=== PATIENT | female | born 1935 | race Asian ===

== ENCOUNTER 2021-04-30 09:16 | Emergency (ER) | payer BC, OTHER ==
[2021-04-30 09:42] VITALS: BMI 26.2
[2021-04-30] MEDS ORDERED: MECLIZINE HCL 25 MG TABLET (FP) PO ONE (10:49)
[2021-04-30] MEDS ORDERED: MECLIZINE HCL 25 MG TABLET (FP) ONE (10:52)
[2021-04-30] MEDS ORDERED: DIPHTH,PERTUSS(ACELL),TET 0.5 ML DISP.SYRIN IM ONE ×2 (11:07→11:26)
[2021-04-30 13:40] VITALS: BP 133/74; PULSE 69; TEMP 98.3
== END 2021-04-30 14:38 | disposition home or self-care (01) ==
LOC: JER 09:16
PROC: 3E0234Z Introduction of Serum, Toxoid and Vaccine into Muscle, Percutaneous Approach (ICD-10-PCS; principal; 2021-04-30)
DX: R42 Dizziness and giddiness (principal); W19.XXXA Unspecified fall, initial encounter
CPT/HCPCS: 70450-TC; 72125-TC; 90471; 90715; 93005; 93010; 99284-25

== ENCOUNTER 2024-10-31 14:09 | Observation (INO) | payer BC, OTHER ==
[2024-10-31] MEDS ORDERED: ONDANSETRON 4 MG/2 ML VIAL ONE (15:15)
[2024-10-31] MEDS ORDERED: ACETAMINOPHEN INJECTION 100 ML ONE (15:15)
[2024-10-31 15:36] LABS: ABSOLUTE IMMATURE GRANULOCYTES 0.16 x10^3/uL (0.0-0.031); BASOPHILS # 0.03 x10^3/uL (0.01-0.08); EOSINOPHIL % 0.3 % (0.7-5.8); EOSINOPHILS # 0.05 x10^3/uL (0.04-0.36); MCHC 33.2 g/dl (32.2-35.5); MEAN CELL VOLUME 94.0 fl (79.4-94.8); MEAN PLT VOLUME 11.0 fl (9.4-12.3); MONOCYTE # 1.22 x10^3/uL (0.24-0.86); MONOCYTE % 7.9 % (4.7-12.5); RDW 15.8 % (12.5-17.0)
[2024-10-31] MEDS: ONDANSETRON 4 MG/2 ML VIAL IVPUSH ONE (15:36)
[2024-10-31] MEDS: ACETAMINOPHEN 1000 MG/100 ML BAG IVPB ONE (15:37)
[2024-10-31] MEDS: SODIUM CHLORIDE 0.9% 500 ML INFUS.BAG IV ONE (15:37)
[2024-10-31 16:38] LABS: GLUCOSE,RANDOM 103.0 mg/dL (74-106); TOT PROT 6.2 g/dl (6.4-8.2)
[2024-10-31 16:39] LABS: CO2 20.0 mmol/L (21-32)
[2024-10-31 16:41] LABS: ALK PHOS 231.0 U/L (40-150)
[2024-10-31 16:44] LABS: SGOT/AST 37.0 U/L (5-34); SGPT/ALT 22.0 U/L (0-55)
[2024-10-31 17:03] LABS: CREATININE 3.18 mg/dL (0.55-1.3)
[2024-10-31 18:09] LABS: EPI CELLS 5 /uL (0-25.1); HYALINE CASTS 0 /uL (0-3.1); URINE APPEARANCE CLEAR; URINE BACTERIA >9,000 /uL (0-1359); URINE BILIRUBIN NEGATIVE (NEGATIVE); URINE COLOR YELLOW; URINE GLUCOSE (UA) NEGATIVE (NEGATIVE); URINE KETONE NEGATIVE (NEGATIVE); URINE LEUK ESTERASE 1+ (NEGATIVE); URINE NITRITE NEGATIVE (NEGATIVE); URINE PROTEIN 1+ (NEGATIVE); URINE RBC 83 /uL (0-23.9); URINE UROBILINOGEN 0.2 mg/dL (0.2-1.0); URINE WBC 108 /uL (0-25.8)
[2024-10-31] MEDS ORDERED: CEFTRIAXONE 1 GM/50 ML BAG ONE (19:33)
[2024-10-31] MEDS: CEFTRIAXONE 1,000 MG in DEXTROSE 5%-WATER - 50 ML IVPB ONE (19:47)
[2024-10-31] MEDS: SODIUM CHLORIDE 1,000 ML IV SCH (19:48)
[2024-10-31 22:34] VITALS: BMI 26.9
[2024-10-31] MEDS: GABAPENTIN 100 MG CAPSULE PO SCH (22:39)
[2024-10-31] MEDS: ATORVASTATIN CA 20 MG TABLET (FP) PO SCH (22:39)
[2024-10-31] MEDS: HEPARIN NA (PORCINE) 5,000 UNITS/ML 1ML VIAL SQ SCH (22:39)
[2024-11-01 03:32] LABS: EPI CELLS 3 /uL (0-25.1); HYALINE CASTS 1 /uL (0-3.1); URINE APPEARANCE CLEAR; URINE BACTERIA 2185 /uL (0-1359); URINE BILIRUBIN NEGATIVE (NEGATIVE); URINE COLOR YELLOW; URINE GLUCOSE (UA) NEGATIVE (NEGATIVE); URINE KETONE NEGATIVE (NEGATIVE); URINE LEUK ESTERASE 1+ (NEGATIVE); URINE NITRITE POSITIVE (NEGATIVE); URINE PROTEIN 1+ (NEGATIVE); URINE RBC 388 /uL (0-23.9); URINE UROBILINOGEN 0.2 mg/dL (0.2-1.0)
[2024-11-01 07:36] LABS: MCHC 33.0 g/dl (32.2-35.5); MEAN CELL VOLUME 95.2 fl (79.4-94.8); MEAN PLT VOLUME 10.9 fl (9.4-12.3); RDW 16.0 % (12.5-17.0)
[2024-11-01 07:55] LABS: GLUCOSE,RANDOM 83.0 mg/dL (74-106); TOT PROT 6.0 g/dl (6.4-8.2)
[2024-11-01 07:56] LABS: CO2 17.0 mmol/L (21-32)
[2024-11-01 07:58] LABS: ALK PHOS 222.0 U/L (40-150)
[2024-11-01 08:01] LABS: CREATININE 2.31 mg/dL (0.55-1.3); SGOT/AST 25.0 U/L (5-34); SGPT/ALT 19.0 U/L (0-55)
[2024-11-01] MEDS: amLODIPine BESYLATE 5 MG TABLET (FP) PO SCH (09:18)
[2024-11-01] MEDS: LOSARTAN POTASSIUM 50 MG TABLET PO SCH (09:18)
[2024-11-01] MEDS: SERTRALINE HCL 25 MG TABLET (FP) PO SCH (09:18)
[2024-11-01] MEDS: SODIUM CHLORIDE 0.45% 1,000 ML IV SCH (13:34)
[2024-11-02 09:10] VITALS: RESP 18
[2024-11-02 09:51] LABS: ABSOLUTE IMMATURE GRANULOCYTES 0.09 x10^3/uL (0.0-0.031); BASOPHILS # 0.03 x10^3/uL (0.01-0.08); EOSINOPHIL % 1.0 % (0.7-5.8); EOSINOPHILS # 0.10 x10^3/uL (0.04-0.36); MCHC 31.4 g/dl (32.2-35.5); MEAN CELL VOLUME 98.4 fl (79.4-94.8); MEAN PLT VOLUME 10.4 fl (9.4-12.3); MONOCYTE # 0.68 x10^3/uL (0.24-0.86); MONOCYTE % 6.6 % (4.7-12.5); RDW 16.0 % (12.5-17.0)
[2024-11-02 10:18] LABS: GLUCOSE,RANDOM 132.0 mg/dL (74-106); TOT PROT 6.1 g/dl (6.4-8.2)
[2024-11-02 10:19] LABS: CO2 20.0 mmol/L (21-32)
[2024-11-02 10:21] LABS: ALK PHOS 223.0 U/L (40-150)
[2024-11-02 10:24] LABS: CREATININE 2.04 mg/dL (0.55-1.3); SGOT/AST 28.0 U/L (5-34); SGPT/ALT 17.0 U/L (0-55)
[2024-11-02 13:59] VITALS: BP 124/67; PULSE 94; TEMP 98.8
== END 2024-11-02 15:18 | disposition home or self-care (01) ==
LOC: JER 14:09 → INTOOBSV 17:36 → JERBED 17:36 → J6S 21:55
PROVIDERS: ADMIT Student in an Organized Health Care Education/Training Program; ATTEND Internal Medicine
PROC: 3E03329 Introduction of Other Anti-infective into Peripheral Vein, Percutaneous Approach (ICD-10-PCS; principal; 2024-10-31)
PROC: 3E033NZ Introduction of Analgesics, Hypnotics, Sedatives into Peripheral Vein, Percutaneous Approach (ICD-10-PCS; 2024-10-31)
PROC: 3E023GC Introduction of Other Therapeutic Substance into Muscle, Percutaneous Approach (ICD-10-PCS; 2024-10-31)
PROC: 3E033GC Introduction of Other Therapeutic Substance into Peripheral Vein, Percutaneous Approach (ICD-10-PCS; 2024-10-31)
DX: N17.9 Acute kidney failure, unspecified (principal); I10 Essential (primary) hypertension; E78.5 Hyperlipidemia, unspecified
CPT/HCPCS: 36415; 71045-TC-FY; 76775-TC; 80053; 81003; 82570; 83690; 83735; 84100; 84300; 84540; 85025; 87086; 87637-QW; 96361; 96365; 96372; 96375; 99285-25; G0378